=== PATIENT | female | born 1990 | race Caucasian/White ===

== ENCOUNTER 2016-10-09 16:00 | Inpatient (IN) | payer OTHER ==
--- NOTE | 2016-10-09 08:38 | HP ---
CHIEF COMPLAINT: Left knee pain. HISTORY OF PRESENT ILLNESS: Maricarmen is a young lady that has had issues with patellar dislocations in the past. She has had surgical intervention on a couple of occasions and most recently underwent distal femoral osteotomy with patellar realignment procedure. Dr. Zaman did this and she was admitted to their facility. Because of her need for ongoing therapy and need for ongoing pain control, she is to be admitted to us for further care. She is currently performing physical therapy. PAST SURGICAL HISTORY: 1. Cholecystectomy. 2. 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 3. Distal femoral osteotomy with patellar realignment. MEDICATIONS: 1. Metoprolol. 2. Zoloft. 3. Protonix. 4. Tizanidine. 5. Lortab. ALLERGIES: NO KNOWN DRUG ALLERGIES. CODE STATUS: Full code. IMMUNIZATIONS: Up to date. SOCIAL HISTORY: The patient does not drink or use any illicit drugs. She does smoke. FAMILY HISTORY: None pertinent to today's complaint. REVIEW OF SYSTEMS: Negative except as indicated in the History of Present Illness. PHYSICAL EXAMINATION: MENTAL STATUS: The patient is awake, alert, and is able to give a good history and participate in the physical. The patient is oriented to person, place and time. SKIN: Normal tone and turgor. HEENT: Normocephalic, atraumatic. Pupils equal, round and reactive. Mucosal membranes are moist. NECK: Normal range of motion. No thyromegaly, no lymphadenopathy. CHEST: Normal respiratory excursion. CARDIAC: Regular rate and rhythm. No murmurs, rubs or gallops. MUSCULOSKELETAL: The bilateral upper extremities show full active range of motion without pain. She has intact sensation and they are warm and well perfused. There is no deformity and no crepitus. The right lower extremity shows a slight valgus deformity, but full range of motion without pain. Sensation is intact. She has no crepitus. It is warm and well perfused. There is no varus/valgus or anterior/posterior laxity. She has full range of motion of the hip. The left lower extremity shows full range of motion of the hip. She is limited with regards to range of motion of the knee by a brace and she is able to actively bend to 90 degrees from full extension. Sensation is intact distally and it is warm and well perfused. Wounds are clean. There are no signs or symptoms of infection. ASSESSMENT: 1. Status post distal femoral osteotomy with patellar realignment. PLAN: The plan at this point is for admission for pain control and ongoing therapy. I have spoken to Dr. Zaman regarding the requirements for therapy and she is to be only toe-touch weight-bearing. She can do CPM from 0 to 90 degrees and the brace is to be locked at 30 degrees during any type of ambulatory upright activities. #[id number] [facility]
[2016-10-09] MEDS ORDERED: NICOTINE PATCH 14 MG TD PRN (18:46)
[2016-10-09] MEDS ORDERED: diphenhydrAMINE HCL 25 MG CAP PO PRN (19:33)
[2016-10-09] MEDS ORDERED: SIMETHICONE 80 MG TAB PO PRN (19:33)
[2016-10-09] MEDS ORDERED: ALUM & MAG HYDROX-SIMETHICONE 30 ML UD PO PRN (19:33)
--- NOTE | 2016-10-09 19:35 | RAD ---
EXAM DESCRIPTION: Knee,Left 2 or More Views CLINICAL HISTORY: 25 years Female Post Femoral Osteotomy with Patellar Realignment COMPARISON: 09/04/2015. TECHNIQUE: Two view left knee FINDINGS: There are postsurgical change of osteotomy with sideplate and screw fixation along the distal femur. Two screws transfix the region of the patellar tendon insertion. No apparent complication of hardware. Joint effusion is present. Soft tissue swelling is noted. IMPRESSION: Postsurgical change of femoral osteotomy and patellar realignment without complication of the hardware Small amount of soft tissue swelling and small knee effusion Anatomic alignment Electronically signed by: Shani Dumas 10/09/2016 7:34 PM CDT
[2016-10-09] MEDS: DOCUSATE SODIUM 100 MG CAP PO SCH (20:32)
[2016-10-09] MEDS: TEMAZEPAM 15 MG CAP PO PRN (22:31)
[2016-10-09] MEDS: BISACODYL TAB 5 MG TAB PO PRN (22:31)
[2016-10-10] MEDS: PANTOPRAZOLE SODIUM TAB 40 MG PO SCH (05:56)
[2016-10-10] MEDS ORDERED: MAGNESIUM HYDROXIDE 30 ML UD ONE (08:17)
[2016-10-10] MEDS ORDERED: ENOXAPARIN SODIUM 40 MG/0.4 ML SYG SUBCU ONE (08:17)
[2016-10-10] MEDS ORDERED: DOCUSATE SODIUM 100 MG CAP ONE (08:17)
[2016-10-10] MEDS: SERTRALINE HCL 50 MG TAB PO SCH (09:38)
[2016-10-10] MEDS: DOCUSATE SODIUM 100 MG CAP PO SCH ×2 (09:39→21:17)
[2016-10-10] MEDS: ENOXAPARIN SODIUM 40 MG/0.4 ML SYG SUBCU SCH (09:39)
[2016-10-10] MEDS: BISACODYL TAB 5 MG TAB PO PRN (09:39)
[2016-10-10] MEDS: MAGNESIUM HYDROXIDE 30 ML UD PO SCH (09:39)
[2016-10-10] MEDS: POLYETHYLENE GLYCOL 3350 17 GM PCKT PO SCH (09:39)
[2016-10-10] MEDS ORDERED: ACETAMINOPHEN 500 MG TAB PO PRN (11:24)
[2016-10-10] MEDS ORDERED: SODIUM PHOS/BIPHOS ENEMA ADULT 133 ML BTTL PR PRN (11:24)
--- NOTE | 2016-10-10 12:28 | PCM.CORE ---
Physician DVT/VTE - Nurse DVT Assessment & Total Each Risk Factor Represents 5 Points: Elective Arthtroplasty Each Risk Factor Represents 1 Point: Hx Major Surgery <1month Each Risk Factor is 1 Point: Obesity (BMI >25) For Women Only. Each Risk Factor Represents 1 Point: Oral Contraceptions or hormone replacement therapy DVT Assessment Score: 8 - 5 or more Very High Risk Treatments: Early Ambulation *, Sequential Compression Device Pharmacological: Enoxaparin 40mg SQ Daily
[2016-10-10] MEDS ORDERED: PROPRANOLOL LA 60 MG CAP ONE (12:45)
[2016-10-10] MEDS ORDERED: HYDROcodone 7.5MG/APAP 325MG 1 EA TAB ONE (13:10)
[2016-10-10] MEDS: HYDROcodone 7.5MG/APAP 325MG 1 EA TAB PO PRN (13:24)
[2016-10-10] MEDS: PROPRANOLOL HCL 120 MG PO SCH ×2 (13:30→21:16)
--- NOTE | 2016-10-10 14:20 | PN ---
DATE: 10/10/16 SUBJECTIVE: The patient is doing pretty well. She has been up and gotten a shower already today. OBJECTIVE: She is afebrile. Vital signs are stable. Wounds are clean. There are no signs or symptoms of infection. ASSESSMENT: 1. Status post distal femoral osteotomy. 2. Tibial tubercle transfer. 3. Medial patellofemoral reconstruction. PLAN: The plan at this point is for her to continue on with current weightbearing status as well as range of motion. We are going to progress as healing progresses but we will keep her limited in the brace until then. #[id number] [facility]
[2016-10-10] MEDS ORDERED: BISACODYL SUPPOSITORY 10 MG PR PRN (16:00)
[2016-10-10] MEDS: METAXALONE 800 MG PO SCH (21:15)
[2016-10-10] MEDS: LEVONORGESTREL PO SCH (21:16)
[2016-10-10] MEDS: ETH ESTRADIOL PO SCH (21:16)
[2016-10-10] MEDS: [UNRECOGNIZED DRUG - OTHER] PO SCH (21:16)
[2016-10-10] MEDS: TEMAZEPAM 15 MG CAP PO PRN (21:17)
[2016-10-10] MEDS: GABAPENTIN 300 MG CAP PO SCH (21:19)
[2016-10-11] MEDS: PANTOPRAZOLE SODIUM TAB 40 MG PO SCH (06:07)
[2016-10-11] MEDS ORDERED: ONDANSETRON ODT 8 MG TAB SL PRN (06:41)
[2016-10-11] MEDS: ENOXAPARIN SODIUM 40 MG/0.4 ML SYG SUBCU SCH (08:43)
[2016-10-11] MEDS: SERTRALINE HCL 50 MG TAB PO SCH (08:43)
[2016-10-11] MEDS: MAGNESIUM HYDROXIDE 30 ML UD PO SCH (08:43)
[2016-10-11] MEDS: POLYETHYLENE GLYCOL 3350 17 GM PCKT PO SCH (08:43)
[2016-10-11] MEDS: DOCUSATE SODIUM 100 MG CAP PO SCH ×2 (08:43→20:39)
[2016-10-11] MEDS: PROPRANOLOL HCL 120 MG PO SCH ×2 (08:43→20:41)
[2016-10-11] MEDS: LEVONORGESTREL PO SCH (20:39)
[2016-10-11] MEDS: [UNRECOGNIZED DRUG - OTHER] PO SCH (20:39)
[2016-10-11] MEDS: ETH ESTRADIOL PO SCH (20:39)
[2016-10-11] MEDS: METAXALONE 800 MG PO SCH (20:40)
[2016-10-11] MEDS: GABAPENTIN 300 MG CAP PO SCH (20:41)
[2016-10-11] MEDS: tiZANidine 4 MG TAB PO PRN (22:00)
[2016-10-11] MEDS: TEMAZEPAM 15 MG CAP PO PRN (23:29)
[2016-10-12] MEDS: PANTOPRAZOLE SODIUM TAB 40 MG PO SCH (06:42)
[2016-10-12] MEDS: SERTRALINE HCL 50 MG TAB PO SCH (08:58)
[2016-10-12] MEDS: ENOXAPARIN SODIUM 40 MG/0.4 ML SYG SUBCU SCH (08:58)
[2016-10-12] MEDS: MAGNESIUM HYDROXIDE 30 ML UD PO SCH (08:59)
[2016-10-12] MEDS: DOCUSATE SODIUM 100 MG CAP PO SCH ×2 (08:59→21:31)
[2016-10-12] MEDS: POLYETHYLENE GLYCOL 3350 17 GM PCKT PO SCH (08:59)
[2016-10-12] MEDS: PROPRANOLOL HCL 120 MG PO SCH ×2 (09:01→21:30)
[2016-10-12] MEDS: HYDROcodone 7.5MG/APAP 325MG 1 EA TAB PO PRN ×2 (12:42→21:52)
[2016-10-12] MEDS: tiZANidine 4 MG TAB PO PRN ×2 (14:04→21:52)
[2016-10-12] MEDS: METAXALONE 800 MG PO SCH (21:30)
[2016-10-12] MEDS: ETH ESTRADIOL PO SCH (21:30)
[2016-10-12] MEDS: GABAPENTIN 300 MG CAP PO SCH (21:30)
[2016-10-12] MEDS: [UNRECOGNIZED DRUG - OTHER] PO SCH (21:30)
[2016-10-12] MEDS: LEVONORGESTREL PO SCH (21:30)
[2016-10-12] MEDS: TEMAZEPAM 15 MG CAP PO PRN (21:52)
[2016-10-13] MEDS: PANTOPRAZOLE SODIUM TAB 40 MG PO SCH (06:03)
[2016-10-13] MEDS ORDERED: RIVAROXABAN 10 MG TAB ONE (07:37)
[2016-10-13] MEDS: HYDROcodone 7.5MG/APAP 325MG 1 EA TAB PO PRN ×2 (08:27→17:27)
[2016-10-13] MEDS: POLYETHYLENE GLYCOL 3350 17 GM PCKT PO SCH (08:28)
[2016-10-13] MEDS: MAGNESIUM HYDROXIDE 30 ML UD PO SCH (08:28)
[2016-10-13] MEDS: DOCUSATE SODIUM 100 MG CAP PO SCH ×2 (08:28→21:21)
[2016-10-13] MEDS: RIVAROXABAN 10 MG TAB PO SCH (08:28)
[2016-10-13] MEDS: PROPRANOLOL HCL 120 MG PO SCH ×2 (08:29→21:19)
[2016-10-13] MEDS: SERTRALINE HCL 50 MG TAB PO SCH (08:31)
--- NOTE | 2016-10-13 11:10 | PN ---
DATE: 10/12/16 SUBJECTIVE: Maricarmen is doing well, however, she is not going as far on her CPM at this time as we would like. OBJECTIVE: Her wounds are clean. There are no signs or symptoms of infection. PLAN: At this point, I think she should continue to try to increase her range of motion on the CPM. I discussed with her again the importance of smoking cessation in healing these types of osteotomies. We are going to keep on with therapy with the same restrictions and progress that as time and healing progress. #[id number] [facility]
[2016-10-13] MEDS: tiZANidine 4 MG TAB PO PRN (14:55)
[2016-10-13] MEDS: ETH ESTRADIOL PO SCH (21:19)
[2016-10-13] MEDS: LEVONORGESTREL PO SCH (21:19)
[2016-10-13] MEDS: GABAPENTIN 300 MG CAP PO SCH (21:19)
[2016-10-13] MEDS: [UNRECOGNIZED DRUG - OTHER] PO SCH (21:19)
[2016-10-13] MEDS: METAXALONE 800 MG PO SCH (21:19)
[2016-10-13] MEDS: TEMAZEPAM 15 MG CAP PO PRN (22:46)
[2016-10-14] MEDS: HYDROcodone 7.5MG/APAP 325MG 1 EA TAB PO PRN (03:30)
[2016-10-14] MEDS: PANTOPRAZOLE SODIUM TAB 40 MG PO SCH (06:26)
[2016-10-14] MEDS: DOCUSATE SODIUM 100 MG CAP PO SCH ×2 (08:45→20:40)
[2016-10-14] MEDS: SERTRALINE HCL 50 MG TAB PO SCH (08:45)
[2016-10-14] MEDS: RIVAROXABAN 10 MG TAB PO SCH (08:46)
[2016-10-14] MEDS: POLYETHYLENE GLYCOL 3350 17 GM PCKT PO SCH (08:46)
[2016-10-14] MEDS: MAGNESIUM HYDROXIDE 30 ML UD PO SCH (08:46)
[2016-10-14] MEDS: PROPRANOLOL HCL 120 MG PO SCH ×2 (09:20→20:40)
[2016-10-14] MEDS: tiZANidine 4 MG TAB PO PRN (14:17)
[2016-10-14] MEDS: GABAPENTIN 300 MG CAP PO SCH (20:40)
[2016-10-14] MEDS: TEMAZEPAM 15 MG CAP PO PRN (20:40)
[2016-10-14] MEDS: METAXALONE 800 MG PO SCH (20:44)
[2016-10-14] MEDS: ETH ESTRADIOL PO SCH (20:45)
[2016-10-14] MEDS: [UNRECOGNIZED DRUG - OTHER] PO SCH (20:45)
[2016-10-14] MEDS: LEVONORGESTREL PO SCH (20:45)
[2016-10-15] MEDS: PANTOPRAZOLE SODIUM TAB 40 MG PO SCH (05:53)
[2016-10-15] MEDS: PROPRANOLOL HCL 120 MG PO SCH ×2 (09:22→21:11)
[2016-10-15] MEDS: RIVAROXABAN 10 MG TAB PO SCH (09:26)
[2016-10-15] MEDS: DOCUSATE SODIUM 100 MG CAP PO SCH ×2 (09:26→21:11)
[2016-10-15] MEDS: MAGNESIUM HYDROXIDE 30 ML UD PO SCH (09:26)
[2016-10-15] MEDS: POLYETHYLENE GLYCOL 3350 17 GM PCKT PO SCH (09:26)
[2016-10-15] MEDS: SERTRALINE HCL 50 MG TAB PO SCH (09:26)
[2016-10-15] MEDS: HYDROcodone 7.5MG/APAP 325MG 1 EA TAB PO PRN ×3 (09:33→18:21)
--- NOTE | 2016-10-15 13:07 | PN ---
SUPERVISING PHYSICIAN: Charan Urbano MD DATE: 10/15/16 SUBJECTIVE: The patient is sitting up in her chair in her hospital room. She is eating her lunch. She has no complaints of chest pain, shortness of breath, nausea, vomiting, diarrhea. Her CPM machine has gotten up to 60. She still has some pain in the leg, but thinks the hydrocodone works better than the Percocet. OBJECTIVE: VITAL SIGNS: Afebrile. Heart rate 68. Blood pressure 115/63. Respiratory rate 20. O2 saturation 96% on room air. LUNGS: Clear to auscultation bilaterally. CARDIAC: Regular rate and rhythm. ABDOMEN: Soft, nontender, nondistended. Bowel sounds are positive. EXTREMITIES: Dressing to the left leg is dry and intact. She has a brace in place. NEUROLOGIC: Awake, alert and oriented times three. LABORATORY: There are no labs or films to report at this time. ASSESSMENT: 1. Status post left distal femoral osteotomy with patellar realignment. PLAN: We will continue present supportive care. She will need to remain on Swing Bed status for a few more days because it is recommended per orthopedic that she have no weight-bearing. She is not to straighten her leg and her CPM is to go up to 90 and she has only gotten to 60. We will physical therapy work with her twice a day and inform as of her progress. Physical therapy will need to be very slow and methodical due to the complications of her last surgery. Her pain medications will need to be adjusted at this time because her medications are not sufficient for pain control. We will continue to monitor the patient closely and followup as needed. #[id number] [facility]
[2016-10-15] MEDS: tiZANidine 4 MG TAB PO PRN ×2 (13:27→21:11)
[2016-10-15] MEDS: GABAPENTIN 300 MG CAP PO SCH (21:10)
[2016-10-15] MEDS: [UNRECOGNIZED DRUG - OTHER] PO SCH (21:11)
[2016-10-15] MEDS: METAXALONE 800 MG PO SCH (21:11)
[2016-10-15] MEDS: TEMAZEPAM 15 MG CAP PO PRN (21:11)
[2016-10-15] MEDS: LEVONORGESTREL PO SCH (21:11)
[2016-10-15] MEDS: ETH ESTRADIOL PO SCH (21:11)
[2016-10-16] MEDS: PANTOPRAZOLE SODIUM TAB 40 MG PO SCH (06:02)
[2016-10-16] MEDS: HYDROcodone 7.5MG/APAP 325MG 1 EA TAB PO PRN ×5 (06:36→20:41)
[2016-10-16] MEDS: MAGNESIUM HYDROXIDE 30 ML UD PO SCH (08:48)
[2016-10-16] MEDS: SERTRALINE HCL 50 MG TAB PO SCH (08:48)
[2016-10-16] MEDS: RIVAROXABAN 10 MG TAB PO SCH (08:48)
[2016-10-16] MEDS: DOCUSATE SODIUM 100 MG CAP PO SCH ×2 (08:48→20:41)
[2016-10-16] MEDS: PROPRANOLOL HCL 120 MG PO SCH ×2 (08:48→20:40)
[2016-10-16] MEDS: POLYETHYLENE GLYCOL 3350 17 GM PCKT PO SCH (08:49)
[2016-10-16] MEDS: tiZANidine 4 MG TAB PO PRN (15:50)
[2016-10-16] MEDS: GABAPENTIN 300 MG CAP PO SCH (20:40)
[2016-10-16] MEDS: METAXALONE 800 MG PO SCH (20:40)
[2016-10-16] MEDS: [UNRECOGNIZED DRUG - OTHER] PO SCH (20:40)
[2016-10-16] MEDS: ETH ESTRADIOL PO SCH (20:40)
[2016-10-16] MEDS: LEVONORGESTREL PO SCH (20:40)
[2016-10-16] MEDS: TEMAZEPAM 15 MG CAP PO PRN (20:42)
[2016-10-17] MEDS: PANTOPRAZOLE SODIUM TAB 40 MG PO SCH (05:53)
[2016-10-17] MEDS: HYDROcodone 7.5MG/APAP 325MG 1 EA TAB PO PRN ×4 (05:53→20:57)
[2016-10-17] MEDS: DOCUSATE SODIUM 100 MG CAP PO SCH ×2 (09:01→20:53)
[2016-10-17] MEDS: SERTRALINE HCL 50 MG TAB PO SCH (09:01)
[2016-10-17] MEDS: PROPRANOLOL HCL 120 MG PO SCH ×2 (09:01→20:56)
[2016-10-17] MEDS: RIVAROXABAN 10 MG TAB PO SCH (09:01)
[2016-10-17] MEDS: MAGNESIUM HYDROXIDE 30 ML UD PO SCH (09:01)
[2016-10-17] MEDS: POLYETHYLENE GLYCOL 3350 17 GM PCKT PO SCH (09:02)
[2016-10-17] MEDS: tiZANidine 4 MG TAB PO PRN ×2 (14:09→22:30)
[2016-10-17] MEDS: GABAPENTIN 300 MG CAP PO SCH (20:52)
[2016-10-17] MEDS: ETH ESTRADIOL PO SCH (20:52)
[2016-10-17] MEDS: [UNRECOGNIZED DRUG - OTHER] PO SCH (20:52)
[2016-10-17] MEDS: METAXALONE 800 MG PO SCH (20:52)
[2016-10-17] MEDS: LEVONORGESTREL PO SCH (20:52)
[2016-10-17] MEDS: TEMAZEPAM 15 MG CAP PO PRN (20:57)
[2016-10-18] MEDS: HYDROcodone 7.5MG/APAP 325MG 1 EA TAB PO PRN ×4 (02:45→20:07)
[2016-10-18] MEDS: PANTOPRAZOLE SODIUM TAB 40 MG PO SCH (05:48)
[2016-10-18] MEDS: DOCUSATE SODIUM 100 MG CAP PO SCH ×2 (08:52→21:26)
[2016-10-18] MEDS: PROPRANOLOL HCL 120 MG PO SCH ×2 (08:53→21:26)
[2016-10-18] MEDS: SERTRALINE HCL 50 MG TAB PO SCH (08:53)
[2016-10-18] MEDS: RIVAROXABAN 10 MG TAB PO SCH (08:53)
[2016-10-18] MEDS: tiZANidine 4 MG TAB PO PRN ×2 (08:53→20:06)
[2016-10-18] MEDS: MAGNESIUM HYDROXIDE 30 ML UD PO SCH (08:55)
[2016-10-18] MEDS: POLYETHYLENE GLYCOL 3350 17 GM PCKT PO SCH (08:55)
[2016-10-18] MEDS: LEVONORGESTREL PO SCH (21:26)
[2016-10-18] MEDS: METAXALONE 800 MG PO SCH (21:26)
[2016-10-18] MEDS: ETH ESTRADIOL PO SCH (21:26)
[2016-10-18] MEDS: [UNRECOGNIZED DRUG - OTHER] PO SCH (21:26)
[2016-10-18] MEDS: GABAPENTIN 300 MG CAP PO SCH (21:26)
[2016-10-18] MEDS: TEMAZEPAM 15 MG CAP PO PRN (23:35)
[2016-10-19] MEDS: HYDROcodone 7.5MG/APAP 325MG 1 EA TAB PO PRN ×4 (04:16→17:23)
[2016-10-19] MEDS: PANTOPRAZOLE SODIUM TAB 40 MG PO SCH (05:43)
[2016-10-19] MEDS: tiZANidine 4 MG TAB PO PRN ×2 (08:22→18:27)
[2016-10-19] MEDS: RIVAROXABAN 10 MG TAB PO SCH (09:09)
[2016-10-19] MEDS: SERTRALINE HCL 50 MG TAB PO SCH (09:10)
[2016-10-19] MEDS: PROPRANOLOL HCL 120 MG PO SCH ×2 (09:10→21:30)
[2016-10-19] MEDS: MAGNESIUM HYDROXIDE 30 ML UD PO SCH (09:11)
[2016-10-19] MEDS: POLYETHYLENE GLYCOL 3350 17 GM PCKT PO SCH (09:12)
[2016-10-19] MEDS: DOCUSATE SODIUM 100 MG CAP PO SCH ×2 (09:15→21:29)
--- NOTE | 2016-10-19 15:38 | PN ---
SUPERVISING PHYSICIAN: Shad Wyatt MD DATE: 10-19-16 SUBJECTIVE: The patient continues to show good improvement with physical therapy with good pain control. Currently, her CPM is at 80 degrees with a goal of 90 degrees prior to discharge. She remains afebrile. She has no further complaints. Appetite is well. Pain is well controlled on Manteo. OBJECTIVE: VITAL SIGNS: She remains afebrile. Temperature 98.0, pulse 62, blood pressure 112/68, respirations 18, saturation 95% on room air. I&O showing good balance. Current weight is 14.7 kg. CHEST: Lungs are clear to auscultation bilaterally. HEART: Regular rate and rhythm. ABDOMEN: Obese, soft, non-tender. Positive bowel sounds. EXTREMITIES: No cyanosis, clubbing, or edema. There is a brace in place on the left leg with pulses strong with brick capillary refill. LABORATORY: No laboratory or radiographic studies for review. ASSESSMENT: 1. Status post left distal femoral osteotomy with patellar realignment. PLAN: We will continue to follow the patient as she progresses to physical therapy with a goal of having the CPM up to 90 degrees prior to discharge. Currently she is 80 degrees. Anticipate hopefully discharge either tomorrow or Wednesday once she meets her established goals. We will continue with the pain management with Manteo, it is essentially working well. Until discharge, we will continue to monitor closely and treat appropriately. #[id number] [facility]
[2016-10-19] MEDS: TEMAZEPAM 15 MG CAP PO PRN (21:29)
[2016-10-19] MEDS: METAXALONE 800 MG PO SCH (21:29)
[2016-10-19] MEDS: ETH ESTRADIOL PO SCH (21:30)
[2016-10-19] MEDS: GABAPENTIN 300 MG CAP PO SCH (21:30)
[2016-10-19] MEDS: [UNRECOGNIZED DRUG - OTHER] PO SCH (21:30)
[2016-10-19] MEDS: LEVONORGESTREL PO SCH (21:30)
[2016-10-20] MEDS: HYDROcodone 7.5MG/APAP 325MG 1 EA TAB PO PRN ×4 (01:06→19:17)
[2016-10-20] MEDS: tiZANidine 4 MG TAB PO PRN ×3 (03:27→22:25)
[2016-10-20] MEDS: PANTOPRAZOLE SODIUM TAB 40 MG PO SCH (06:45)
[2016-10-20] MEDS: MAGNESIUM HYDROXIDE 30 ML UD PO SCH (10:31)
[2016-10-20] MEDS: POLYETHYLENE GLYCOL 3350 17 GM PCKT PO SCH (10:31)
[2016-10-20] MEDS: SERTRALINE HCL 50 MG TAB PO SCH (10:31)
[2016-10-20] MEDS: DOCUSATE SODIUM 100 MG CAP PO SCH ×2 (10:31→21:04)
[2016-10-20] MEDS: PROPRANOLOL HCL 120 MG PO SCH ×2 (10:31→21:11)
[2016-10-20] MEDS: RIVAROXABAN 10 MG TAB PO SCH (10:31)
[2016-10-20] MEDS: TEMAZEPAM 15 MG CAP PO PRN (21:04)
[2016-10-20] MEDS: GABAPENTIN 300 MG CAP PO SCH (21:04)
[2016-10-20] MEDS: LEVONORGESTREL PO SCH (21:05)
[2016-10-20] MEDS: METAXALONE 800 MG PO SCH (21:05)
[2016-10-20] MEDS: [UNRECOGNIZED DRUG - OTHER] PO SCH (21:05)
[2016-10-20] MEDS: ETH ESTRADIOL PO SCH (21:05)
[2016-10-21] MEDS: HYDROcodone 7.5MG/APAP 325MG 1 EA TAB PO PRN ×2 (01:52→07:36)
[2016-10-21] MEDS: PANTOPRAZOLE SODIUM TAB 40 MG PO SCH (06:21)
[2016-10-21] MEDS: SERTRALINE HCL 50 MG TAB PO SCH (09:00)
[2016-10-21] MEDS: RIVAROXABAN 10 MG TAB PO SCH (09:00)
[2016-10-21] MEDS: PROPRANOLOL HCL 120 MG PO SCH (09:00)
[2016-10-21] MEDS: DOCUSATE SODIUM 100 MG CAP PO SCH (09:00)
[2016-10-21] MEDS: MAGNESIUM HYDROXIDE 30 ML UD PO SCH (09:31)
[2016-10-21] MEDS: POLYETHYLENE GLYCOL 3350 17 GM PCKT PO SCH (09:32)
[2016-10-21 10:04] VITALS: BP 120/77; TEMP 97.4; O2SAT 97
--- NOTE | 2016-10-25 14:16 | DS ---
SUPERVISING PHYSICIAN: Shad Wyatt MD DISCHARGE DIAGNOSIS: 1. Status post left distal femoral osteotomy with patellar realignment performed by Dr. Zaman, admitted to Swing Bed for physical therapy under the direction of Dr. Donald. LABORATORY: No laboratory collected on admission. RADIOLOGY: Knee x-ray to include left knee. Impression per radiology interpretation showed postictal changes on femoral osteotomy with patellar realignment without complications of hardware with a small amount of soft tissue swelling with small knee effusion with anatomic alignment. No additional radiographic studies were submitted. HISTORY OF PRESENT ILLNESS: Ms. Sibley is a 25 year-old female with multiple issues with patellar dislocation in the past. She had surgical intervention on a couple of occasions and most recently underwent distal femoral osteotomy with patellar realignment. Dr. Zaman did this and she was admitted to [facility] due to need for ongoing therapy and pain control. She was admitted for physical therapy and pain control in stable condition to Swing Bed. HOSPITAL COURSE: Ms. Sibley is a 25 year-old female patient who was admitted as noted in history of present illness for physical therapy and rehabilitation. She progressed well and was up to 90 degrees utilizing CPM and at that point was well enough to be discharged to continue with outpatient physical therapy. PLAN: Ms. Sibley was discharged on 10/21/16 to have close clinical followup with Dr. Donald as scheduled. She is to resume all medications as instructed and to continue physical therapy. She has a followup appointment with Dr. Donald on 11/02/16. Discharge prescriptions: 1. All medications as prior to surgeon including pain management regimen prior to admission to Swing Bed. 2. Zanaflex 1 mg every 8 hours #30 as needed for spasm. DISCHARGE DIET: Regular as tolerated. ACTIVITY: As per physical therapy. Weightbearing and wound care as per Dr. Donald 's instructions. CONDITION ON DISCHARGE: Stable, improved. #[id number] [facility]
== END 2016-10-21 12:20 | disposition home or self-care (01) | DRG 560 ==
LOC: MS 16:00
PROVIDERS: ADMIT Orthopaedic Surgery; ATTEND Nurse Practitioner Family
DX: Z47.89 Encounter for other orthopedic aftercare (principal); Z68.41 Body mass index [BMI] 40.0-44.9, adult; G89.18 Other acute postprocedural pain; F17.210 Nicotine dependence, cigarettes, uncomplicated; E66.9 Obesity, unspecified; Z79.899 Other long term (current) drug therapy

== ENCOUNTER → 2016-10-30 | Outpatient (CLI) | payer OTHER ==
--- NOTE | 2016-10-30 18:24 | RAD ---
EXAM DESCRIPTION: Knee,Left Complete CLINICAL HISTORY: 25 years Female KNEE PAIN COMPARISON: 10/09/2016. TECHNIQUE: Left knee, 3 views FINDINGS: Note is again made of sideplate and screw fixation along the distal femoral osteotomy. No apparent complication of the hardware. Plate and screws appear intact. Mild narrowing of the medial compartment of the joint space at the knee. 2. Screws transfix the patellar tendon insertion site without evidence of complication. Small joint effusion is present. Soft tissue swelling is seen. IMPRESSION: Postsurgical changes without evidence of complication of the hardware or interval change in alignment Soft tissue swelling and minimal joint effusion Electronically signed by: Shani Dumas 10/30/2016 6:23 PM CDT
== END | disposition home or self-care (01) ==
LOC: RAD 17:00
PROVIDERS: ATTEND Orthopaedic Surgery
DX: M25.462 Effusion, left knee (principal)

== ENCOUNTER → 2016-11-30 | Outpatient (CLI) | payer OTHER ==
--- NOTE | 2016-11-30 13:58 | RAD ---
EXAM DESCRIPTION: Knee,Left Complete CLINICAL HISTORY: 25 years, Female, CLOSED TRAUMATIC DISLOCATION OF PATELLOFEMORAL JOINT COMPARISON: October 30, 2016 TECHNIQUE: Four views of the left knee FINDINGS: Previous internal fixation of the femur with a lateral sideplate and multiple screws in the metaphyseal region as well as two screws internally fixing the tibial tuberosity noted and unchanged from study one month earlier. The sunrise view demonstrates normal alignment of the patella. A patellar fracture is not apparent. No significant joint effusion is noted. A subtle tract through the femoral metaphysis suggests prior osteotomy of the distal femur. Standing AP view as well as a standing AP view with 45 degrees of flexion was obtained. IMPRESSION: 1. Postsurgical changes involving the distal femur and the tibial tuberosity with essentially normal alignment of the patella on axial lateral views. Electronically signed by: Charan Aragon MD 11/30/2016 1:57 PM CDT
== END | disposition home or self-care (01) ==
LOC: RAD 08:03
PROVIDERS: ATTEND Orthopaedic Surgery
DX: S83.005D Unspecified dislocation of left patella, subsequent encounter (principal)

== ENCOUNTER 2017-10-14 18:51 | Emergency (ER) | payer OTHER ==
[2017-10-14] MEDS ORDERED: SODIUM CHLORIDE 0.9% (FLUSH) 10 ML SYG IV PRN (19:14)
--- NOTE | 2017-10-14 19:17 | ED.PDOC ---
History of Present Illness - General Chief Complaint: Cardiovascular Problem Stated Complaint: lightheadedness, elevated BP, chest discomfort Time Seen by Provider: 10/14/17 19:04 Source: patient, family Additional Information: 26 YEAR OLD WHITE FEMALE HERE WITH HER MOTHER FOR EVALUATION OF PALPITAIONS CHEST PAIN AND DIZZINESS SHE HAS HISTORY OF HYPERTENSION AND SEEN YESTERDAY BY PCP PLACED ON ANTIBIOTICS FOR SINUSITIS TODAY SHE STARTED TO EXPERIENCE DIZZINESS AND LEFT ANTERIOR CHEST PAIN RADIATING TO THE LEFT SHOULDER NO DIAPHORESIS NO SYNCOPY NO SHORTNESS OF BREATH HER MOM HAS DVT POST OP - History of Present Illness Timing/Duration: 4-6 hours Severity: moderate Improving Factors: nothing Associated Symptoms: chest pain Allergies/Adverse Reactions: Allergies NO KNOWN ALLERGY Allergy (Verified 11/19/15 06:45) Home Medications: Ambulatory Orders Metoprolol Succinate [Toprol Xl] 100 mg PO DAILY 10/24/15 Sertraline HCl [Zoloft] 50 mg PO DAILY 10/24/15 Clonazepam 0.5 mg PO Q8HRS PRN 10/10/16 Gabapentin 600 mg PO BEDTIME 10/10/16 Hydrocodone-Acetaminophen [Lortab 7.5-325 mg] 1 tab PO Q8HRS PRN 10/10/16 Levonorgestrel & Eth Estradiol [Aviane 0.1-20 mg-Mcg] 1 tab PO BEDTIME 10/10/16 Metaxalone 800 mg PO BEDTIME 10/10/16 Propranolol HCl [Propranolol Hydrochloride] 120 mg PO BID 10/10/16 tiZANidine [Zanaflex] 4 mg PO Q8H PRN #20 10/21/16 Meclizine HCl [Antivert] 25 mg PO TID #30 tab 10/14/17 Review of Systems - Review of Systems Constitutional: States: no symptoms reported EENTM: States: no symptoms reported Respiratory: States: no symptoms reported Cardiology: States: no symptoms reported Gastrointestinal/Abdominal: States: no symptoms reported Genitourinary: States: no symptoms reported Musculoskeletal: States: no symptoms reported Skin: States: no symptoms reported Neurological: States: no symptoms reported Endocrine: States: no symptoms reported Hematologic/Lymphatic: States: no symptoms reported Past Medical History (General) - Patient Medical History Hx Seizures: No Hx Stroke: No Hx Asthma: No Hx of COPD: No Hx Cardiac Disorders: Yes Hx Congestive Heart Failure: No Hx Pacemaker: No Hx Hypertension: Yes Hx Diabetes: No Hx Gastroesophageal Reflux: Yes Hx MRSA: No Surgical History: colectomy, tonsillectomy - Vaccination History Hx Tetanus, Diphtheria Vaccination: No Hx Influenza Vaccination: No - Social History Hx Alcohol Use: No Hx Substance Use: No Hx Physical Abuse: No Hx Emotional Abuse: No - Female History Patient is a Female of Child Bearing Age (10 -59 yrs old): Yes Family Medical History - Family History Father Living Status: Still Living Hx Family Asthma: No Hx Family Congestive Heart Failure: No Hx Family Hypertension: Yes Hx Family Stroke: No Hx Cardiac Disease: No Hx Family Diabetes: No Hx Family Cancer: No Mother Living Status: Still Living Hx Family Asthma: No Hx Family Congestive Heart Failure: No Hx Family Hypertension: Yes Hx Family Stroke: No Hx Cardiac Disease: No Hx Family Diabetes: No Hx Family Cancer: No Physical Exam - Physical Exam General Appearance: Alert, Anxious Eye Exam: bilateral normal Ears, Nose, Throat: hearing grossly normal, normal ENT inspection, normal pharynx, abnormal TM (R) Neck: non-tender, full range of motion, supple Respiratory: chest non-tender, lungs clear, normal breath sounds, no respiratory distress, no accessory muscle use Cardiovascular/Chest: normal peripheral pulses, regular rate, rhythm, no edema, no gallop Peripheral Pulses: radial,right: 2+, radial,left: 2+, femoral,right: 2+, femoral ,left: 2+ Gastrointestinal/Abdominal: normal bowel sounds, non tender, soft, no organomegaly Back Exam: normal inspection, no CVA tenderness Progress - Results/Orders Results/Orders: Laboratory Tests 10/14/17 10/14/17 19:21 19:21 WBC 10.4 RBC 4.38 Hgb 11.1 L Hct 34.3 L MCV 78.4 L MCH 25.3 L MCHC 32.3 L RDW 17.0 H Plt Count 331 MPV 8.6 Absolute Neuts (auto) 5.50 Absolute Lymphs (auto) 3.50 H Absolute Monos (auto) 0.80 Absolute Eos (auto) 0.60 H Absolute Basos (auto) 0.10 Neutrophils % 53.0 Lymphocytes % 33.4 Monocytes % 7.3 Eosinophils % 5.6 H Basophils % 0.7 PT 12.2 INR 1.050 PTT (SP) 33.9 D-Dimer, Quantitative < 230 Sodium 141 Potassium 3.6 Chloride 110 Carbon Dioxide 26 Anion Gap 8.6 L BUN 12 Creatinine 0.83 BUN/Creatinine Ratio 14.5 Random Glucose 109 H Serum Osmolality 281.6 Calcium 8.5 Magnesium 1.8 Creatine Kinase 118 CK-MB (CK-2) 2.5 CK-MB (CK-2) % Not Reportable Troponin I < 0.02 B-Natriuretic Peptide 79.1 Departure - Departure Clinical Impression: Vertigo, Hypertension Time of Disposition: 20:07 Disposition: Discharge to Home or Self Care Condition: Good Departure Forms: ED Discharge - Pt. Copy, Patient Portal Self Enrollment Instructions: DI for Chest Pain Diet: resume usual diet Activity: walking as tolerated Referrals: CHRISTIE LECHUGA [Referring] - 1-2 Weeks Prescriptions: Meclizine HCl [Antivert] 25 mg PO TID #30 tab Home Medications: Ambulatory Orders Metoprolol Succinate [Toprol Xl] 100 mg PO DAILY 10/24/15 Sertraline HCl [Zoloft] 50 mg PO DAILY 10/24/15 Clonazepam 0.5 mg PO Q8HRS PRN 10/10/16 Gabapentin 600 mg PO BEDTIME 10/10/16 Hydrocodone-Acetaminophen [Lortab 7.5-325 mg] 1 tab PO Q8HRS PRN 10/10/16 Levonorgestrel & Eth Estradiol [Aviane 0.1-20 mg-Mcg] 1 tab PO BEDTIME 10/10/16 Metaxalone 800 mg PO BEDTIME 10/10/16 Propranolol HCl [Propranolol Hydrochloride] 120 mg PO BID 10/10/16 tiZANidine [Zanaflex] 4 mg PO Q8H PRN #20 10/21/16 Meclizine HCl [Antivert] 25 mg PO TID #30 tab 10/14/17
[2017-10-14] MEDS ORDERED: MECLIZINE HCL 12.5 MG TAB PO ONE (19:18)
[2017-10-14] MEDS ORDERED: MECLIZINE HCL 12.5 MG TAB ONE (19:18)
[2017-10-14] MEDS ORDERED: LORazepam 0.5 MG TAB PO ONE (19:40)
--- NOTE | 2017-10-14 20:08 | RAD ---
EXAM DESCRIPTION: Chest,1 View CLINICAL HISTORY: chest pain COMPARISON: None. FINDINGS: Cardiac silhouette is within normal limits. There is no focal parenchymal or pleural disease. There is mild peribronchial cuffing and the interstitial markings are mildly thickened. IMPRESSION: Mild pulmonary edema. Findings could be related to viral inflammation but are nonspecific. Electronically signed by: Agustin Lazar 10/14/2017 8:07 PM CDT
[2017-10-14 20:44] VITALS: BP 151/84; TEMP 98.2; O2SAT 96
== END 2017-10-14 20:25 | disposition home or self-care (01) ==
LOC: ER 18:51
DX: I10 Essential (primary) hypertension (principal); R42 Dizziness and giddiness; R07.9 Chest pain, unspecified; I51.9 Heart disease, unspecified; K21.9 Gastro-esophageal reflux disease without esophagitis; Z79.899 Other long term (current) drug therapy

== ENCOUNTER → 2018-10-21 | Outpatient (CLI) | payer OTHER | LOC: LAB.O 10:30 | PROVIDERS: ATTEND Nurse Practitioner Family | DX: E87.6 Hypokalemia (principal) ==

== ENCOUNTER → 2018-10-22 | Outpatient (CLI) | payer OTHER | LOC: LAB.O 11:30 | PROVIDERS: ATTEND Nurse Practitioner Family | DX: R10.11 Right upper quadrant pain (principal) ==

== ENCOUNTER → 2018-11-25 | Outpatient (CLI) | payer OTHER ==
--- NOTE | 2018-11-27 10:42 | MRI ---
EXAM: Lumbar Spine w/o Contrast CLINICAL HISTORY: M54.5 COMPARISON STUDY: MRI lumbar spine May 10, 2015 TECHNICAL: Multiplanar multisequence noncontrast MRI images of the lumbar spine FINDINGS: The lumbar vertebral bodies are in appropriate anatomic alignment. There is no visible fracture. There are no bone marrow signal changes of edema/inflammation. The conus medullaris has a normal configuration. L1-2 and L2-3: No disc herniation, canal stenosis or neurologic impingement L3-4: There is a small focal area of annular fissuring. Disc desiccation is present and there is mild disc height loss. There is a central disc protrusion that measures 3.5 mm and minimally contacts the ventral thecal sac but the central spinal canal is not stenotic. The nerve roots exit without impingement. There are mild degenerative changes of the facets. L4-5: Minimal disc desiccation. No significant disc height loss. A central disc protrusion measures 4 mm and does not cause spinal canal stenosis. The nerve roots exit without visible impingement. There are mild degenerative changes of facets. L5-S1: Mild disc height loss and a central disc protrusion of 4 mm. No central spinal canal stenosis. A left lateral disc protrusion measures 6 mm and contacts the exiting nerve root. Mild degenerative changes of facets. IMPRESSION: 1. 6 mm left lateral disc protrusion at L5-S1 contacts the exiting nerve root. 2. 3-4 mm central disc protrusions at L3-4, L4-5 and L5-S1 do not cause canal stenosis. Focal area of annular fissuring at L3-4. 3. Mild disc height loss and disc desiccation at L3-4 is asymmetrically worse on the right than the left. There is mild asymmetric disc height loss left greater than right at L5-S1. 4. Mild facet arthropathy at the last 3 levels. Electronically signed by: Joey Barillas MD 11/27/2018 10:41 AM CDT
== END ==
LOC: MRI 11:00
PROVIDERS: ATTEND Nurse Practitioner Family
DX: M51.27 Other intervertebral disc displacement, lumbosacral region (principal); M51.26 Other intervertebral disc displacement, lumbar region; M51.36 Other intervertebral disc degeneration, lumbar region; M47.896 Other spondylosis, lumbar region

== ENCOUNTER → 2019-10-02 | Outpatient (CLI) | payer OTHER | LOC: GMA MATASK 14:43 | PROVIDERS: ATTEND Family Medicine | DX: R73.9 Hyperglycemia, unspecified (principal) ==

== ENCOUNTER 2019-11-04 11:04 | Emergency (ER) | payer OTHER ==
[2019-11-04 11:22] VITALS: BP 154/102; TEMP 97.6; O2SAT 96
--- NOTE | 2019-11-04 11:22 | ED.PDOC ---
History of Present Illness - General Chief Complaint: ENT Problem Stated Complaint: L ear/jaw pain Time Seen by Provider: 11/04/19 11:20 Source: patient Exam Limitations: no limitations - History of Present Illness Initial Comments: 28 y/o female c/o L ear pain for 4 days. includes the area behind her ear and her jaw. No c/o fever, chills, nasal congestion or cough. Timing/Duration: other - 4 days EENT Location: ear (L) Prearrival Treatment: over the counter meds Improving Factors: nothing Worsening Factors: nothing Associated Symptoms: denies symptoms Allergies/Adverse Reactions: Allergies NO KNOWN ALLERGY Allergy (Verified 11/19/15 06:45) Home Medications: Ambulatory Orders Clonazepam 0.5 mg PO Q8HRS PRN 10/10/16 Gabapentin 600 mg PO BEDTIME 10/10/16 Propranolol HCl [Propranolol Hydrochloride] 120 mg PO BID 10/10/16 tiZANidine [Zanaflex] 4 mg PO Q8H PRN #20 10/21/16 Acetaminophen W/ Codeine [Tylenol W/ CODEINE #3] 1 ea PO Q6HR PRN 7 Days #20 11/04/19 Amoxicillin & Pot Clavulanate [Augmentin Tab] 875 mg PO BID 10 Days #20 tab 11/04/19 Amphetamine-Dextroamphetamine [Adderall] 1 tab PO 11/04/19 Lamotrigine [Lamictal] 200 mg PO 11/04/19 Pantoprazole Tablet [Protonix] 40 mg PO ACBK 11/04/19 Review of Systems - Review of Systems Constitutional: States: no symptoms reported EENTM: States: ear pain, other - pain behind L ear and into jaw Respiratory: States: no symptoms reported Gastrointestinal/Abdominal: States: no symptoms reported Skin: States: no symptoms reported Past Medical History (General) - Patient Medical History Hx Seizures: No Hx Stroke: No Hx Asthma: No Hx of COPD: No Hx Cardiac Disorders: Yes Hx Congestive Heart Failure: No Hx Pacemaker: No Hx Hypertension: Yes Hx Diabetes: No Hx Gastroesophageal Reflux: Yes Hx MRSA: No - Vaccination History Hx Tetanus, Diphtheria Vaccination: No Hx Influenza Vaccination: No - Social History Hx Alcohol Use: No Hx Substance Use: No Hx Physical Abuse: No Hx Emotional Abuse: No Family Medical History - Family History Father Living Status: Still Living Hx Family Asthma: No Hx Family Congestive Heart Failure: No Hx Family Hypertension: Yes Hx Family Stroke: No Hx Cardiac Disease: No Hx Family Diabetes: No Hx Family Cancer: No Mother Living Status: Still Living Hx Family Asthma: No Hx Family Congestive Heart Failure: No Hx Family Hypertension: Yes Hx Family Stroke: No Hx Cardiac Disease: No Hx Family Diabetes: No Hx Family Cancer: No Physical Exam - Physical Exam General Appearance: Alert Eye Exam: bilateral normal Ear Exam: right ear: canal normal, TM normal, left ear: TM red, erythema, bilateral ear: auricle normal Nasal Exam: normal inspection Throat Exam: normal mouth inspection Neck: non-tender, full range of motion, lymphadenopathy (L) Departure - Departure Clinical Impression: Otitis media Condition: Good Departure Forms: ED Discharge - Pt. Copy, Patient Portal Self Enrollment Referrals: Jesse Bautista MD [Primary Care Provider] - 1-2 Weeks Prescriptions: Acetaminophen W/ Codeine [Tylenol W/ CODEINE #3] 1 ea PO Q6HR PRN 7 Days #20 PRN Reason: Moderate To Severe Pain Amoxicillin & Pot Clavulanate [Augmentin Tab] 875 mg PO BID 10 Days #20 tab Home Medications: Ambulatory Orders Clonazepam 0.5 mg PO Q8HRS PRN 10/10/16 Gabapentin 600 mg PO BEDTIME 10/10/16 Propranolol HCl [Propranolol Hydrochloride] 120 mg PO BID 10/10/16 tiZANidine [Zanaflex] 4 mg PO Q8H PRN #20 10/21/16 Acetaminophen W/ Codeine [Tylenol W/ CODEINE #3] 1 ea PO Q6HR PRN 7 Days #20 11/04/19 Amoxicillin & Pot Clavulanate [Augmentin Tab] 875 mg PO BID 10 Days #20 tab 11/04/19 Amphetamine-Dextroamphetamine [Adderall] 1 tab PO 11/04/19 Lamotrigine [Lamictal] 200 mg PO 11/04/19 Pantoprazole Tablet [Protonix] 40 mg PO ACBK 11/04/19
[2019-11-04] MEDS ORDERED: ACETAMINOPHEN W/COD #3 TAB 1 EA TAB PO ONE (11:26)
== END 2019-11-04 11:38 | disposition home or self-care (01) ==
LOC: ER 11:04
DX: H66.92 Otitis media, unspecified, left ear (principal); I10 Essential (primary) hypertension; Z79.899 Other long term (current) drug therapy

== ENCOUNTER → 2019-11-27 | Outpatient (CLI) | payer OTHER ==
--- NOTE | 2019-11-27 15:21 | MRI ---
EXAM DESCRIPTION: Lumbar Spine w/o Contrast : Magnetic Resonance Imaging. CLINICAL HISTORY: LOW BACK PAIN COMPARISON: MRI lumbar spine without contrast November 2018. TECHNIQUE: Multiplanar, multiple standard sequences, non contrast MRI, lumbar spine. FINDINGS: L5-S1: The disc is well visualized on axial T2 series 501, image 3. Minimal desiccation of the annulus and posterior midline 3.5 mm protrusion. Posterior flavum ligaments and facet joints (canal elements) are unremarkable. AP canal diameter 10 mm. This has progressed since the prior study. Mild to moderate right foraminal narrowing and moderate left foraminal narrowing with disc bulge into the foramen abutting the left L5 nerve. Stable since the prior study. L4-L5: Posterior midline bulge 3 mm. Canal elements are unremarkable. AP canal diameter 14 mm. Bilateral foramina are patent. No interval change. L3-L4: Disc desiccation in the midline and right of midline stable since the prior study. Hyperintense T2 annular fissure in the inferior posterior midline of the 4 mm disc bulge. Canal elements are unremarkable. AP canal diameter 13 mm. Stable since the prior study. Bilateral foramina are patent. L2-L3: Desiccation in the midline and right of midline. No posterior disc bulge. Canal elements are unremarkable. Canal and bilateral foramina are patent. No change from the prior study. Normal signal in the L1-L2 disc with no bulging and disc space preserved. Canal elements are unremarkable. Bilateral foramina and canal are patent. Stable since the prior study. T12-L1: Normal signal in the disc with disc space preserved. Canal elements are unremarkable. Foramina and canal are patent. Conus terminates at this level. No interval change. L2-L4 levoscoliosis. Unchanged. Paravertebral soft tissues negative.. Distal cord normal signal and caliber. Small circumscribed hyperintense T1 and T2 hemangioma in the L1 vertebral body is stable. Otherwise normal marrow signal in the remaining vertebral bodies and the posterior elements. Vertebral bodies are not compressed at any level. IMPRESSION: 1. L5-S1 posterior midline disc protrusion has increased since the prior study with borderline mild central canal stenosis. Disc bulge into the left foramen abutting the left L5 nerve is stable. 2. L3-4 and L2-3 discs are desiccated in the midline and right of midline, most likely related to the concave side of the scoliosis at these levels. Annular fissure and 4 mm disc bulge at L3-L4. Stable since the prior study. Electronically signed by: Agustin Butler MD 11/27/2019 3:19 PM CDT
== END ==
LOC: MRI 07:02
PROVIDERS: ATTEND Family Medicine
DX: M51.27 Other intervertebral disc displacement, lumbosacral region (principal); M48.07 Spinal stenosis, lumbosacral region; M51.36 Other intervertebral disc degeneration, lumbar region; M41.9 Scoliosis, unspecified